=== PATIENT | male | born 1985 | race African-American/Black ===

== ENCOUNTER 2017-12-04 05:37 | Emergency (ER) | payer BC ==
[~2017-12-04] VITALS: Ht 170.2 cm; Wt 106.6 kg
[~2017-12-04 05:37] MED LIST: ERYTHROMYCIN E3.5 G1 OPHTHALMIC; IBUPROFEN 800800 M1 PO
[2017-12-04] MEDS ORDERED: IBUPROFEN 600600 M1 PO (06:36)
[2017-12-04 06:46] VITALS: BP 148/80
== END 2017-12-04 06:47 | disposition home or self-care (01) ==
LOC: ER 05:37
DX: M25.571 Pain in right ankle and joints of right foot (principal); M25.471 Effusion, right ankle